=== PATIENT | female | born 1955 | race Two or more races ===

== ENCOUNTER 2020-12-03 04:29 | Day surgery (SDC) | payer BC, OTHER ==
[2020-12-01 16:37] VITALS: BMI 32.5
[2020-12-03 09:03] VITALS: TEMP 97
[2020-12-03 09:31] VITALS: BP 130/73; PULSE 64
== END 2020-12-03 09:45 | disposition home or self-care (01) ==
LOC: JASU-ENDO 04:29
PROVIDERS: ATTEND Internal Medicine Gastroenterology
PROC: 0DBN8ZX Excision of Sigmoid Colon, Via Natural or Artificial Opening Endoscopic, Diagnostic (ICD-10-PCS; principal; 2020-12-03 09:30)
DX: Z12.11 Encounter for screening for malignant neoplasm of colon (principal); K63.5 Polyp of colon; K57.30 Diverticulosis of large intestine without perforation or abscess without bleeding; Z86.010 Personal history of colon polyps
CPT/HCPCS: 88305-TC